=== PATIENT | male | born 1945 | race Caucasian/White ===

== ENCOUNTER → 2021-01-02 | Outpatient (CLI) | payer MEDICARE ==
--- NOTE | 2021-01-02 12:04 | RAD ---
EXAM: CT Abdomen and Pelvis without IV contrast CLINICAL HISTORY: HEMATURIA. COMPARISON: none TECHNIQUE: Helical CT of the abdomen and pelvis without intravenous contrast. Axial, coronal and sagi ttal reformatted images were generated. PQRS compliance statement - One or more of the following individualized dose reduction techniques wer e utilized for this study: 1. Automated exposure control 2. Adjustment of the mA and/or kV according to patient size 3. Use of iterative reconstruction technique FINDINGS: Lack of intravenous contrast limits evaluation of solid organs, vasculature, and lymph nodes. Lower chest: Linear opacities lower lobes and lingula likely scarring/atelectasis. Calcified granuloma right lower lobe. 5 mm middle lobe lung nodule (image 12) is seen. Coronary calcifications and aortic root calci fications are seen. Abdomen and Pelvis: No focal liver lesion. Dense calcified gallstones are seen within the gallbladder which is otherwise grossly unremarkable. No biliary ductal dilatation. Pancreas and adrenal glands are unremarkable. Max cified granuloma within the spleen. Low density lesion within the spleen may represent a cyst. No focal renal lesion. No hydronephrosis. No hydroureter. No renal tract calcifications. Prostatic ca lcifications are seen. Bladder is grossly unremarkable. Mild bladder wall thickening. Moderate colonic stool content is seen. No small or large bowel dilatation. No bowel obstruction. Sherrie endix is normal. No abdominal or pelvic ascites. No abdominal or pelvic lymphadenopathy. Fat-containing right inguinal hernia. Aorta is grossly normal in caliber with atherosclerotic calcifications. Bones: No aggressive osseous lesion is seen. Hip joint degenerative changes of lower lumbar spine degenerati ve changes are seen. IMPRESSION: 1. No renal tract calculus. No hydronephrosis or hydroureter. 2. Mild bladder wall thickening may be seen with cystitis. This can be correlated with urinalysis. 3. Cholelithiasis without CT evidence for acute cholecystitis. 4. 5 mm middle lobe lung nodule. Per Fleischner Society guidelines for incidentally found solid nodu les measuring less than 6 mm, no follow-up is necessary if patient is considered at low risk for lung cancer. If patient is considered to be at high risk, such as with history of smoking, then CT follow -up in about 12 months can be considered. Electronically signed by: José Miguel Pacheco MD (01/02/2021 12:02 PM) [facility]
== END ==
LOC: CT 11:10
PROVIDERS: ATTEND Family Medicine
DX: K40.90 Unilateral inguinal hernia, without obstruction or gangrene, not specified as recurrent (principal); K80.20 Calculus of gallbladder without cholecystitis without obstruction; R31.9 Hematuria, unspecified; I25.10 Atherosclerotic heart disease of native coronary artery without angina pectoris; J84.10 Pulmonary fibrosis, unspecified; I70.0 Atherosclerosis of aorta; R91.8 Other nonspecific abnormal finding of lung field
CPT/HCPCS: 74176